=== PATIENT | female | born 1995 | race Caucasian/White ===

== ENCOUNTER 2017-04-22 20:56 | Emergency (ER) | payer BC ==
[2014-04-07 08:46] VITALS: Wt 99.8 kg
[~2017-04-22 20:56] MED LIST: ALBU8.5H12 IH; AMOX500T10 PO; AMPH15TA3 PO; ASPI-692 PO; CETI-260 PO; DIAZ-308 PO; DIVA250T81 PO; FLUV100T21 PO; MULT-1372 PO; QUET100T29 PO; VENL75CA58 PO
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
[2017-04-22 21:45] LABS: PLATELET COUNT, AUTOMATED 339 K/uL (150-450)
[2017-04-23 01:44] VITALS: BP 133/88
== END 2017-04-22 22:50 ==
LOC: ER 21:38
DX: F32.9 Major depressive disorder, single episode, unspecified (principal); R45.851 Suicidal ideations; F12.929 Cannabis use, unspecified with intoxication, unspecified
CPT/HCPCS: 36415; 80305; 80320; 80329; 81001; 81025; 82040; 82247; 82310; 82374; 82435; 82565; 82947; 83735; 84075; 84132; 84155; 84295; 84443; 84450; 84460; 84520; 85025; 99285

== ENCOUNTER 2017-04-22 22:12 | Inpatient (IN) | payer BC ==
[2014-04-07 08:46] VITALS: Ht 162.6 cm; Wt 99.8 kg
[~2017-04-22] VITALS: Ht 162.6 cm; Wt 99.8 kg
[2017-04-22] MEDS ORDERED: MAG HYD/AL HYD/SIMETH 30ML UDC PO PRN (23:00)
[2017-04-22] MEDS: LORazepam 1 MG TAB PO PRN (23:07)
[2017-04-22 23:38] VITALS: BP 131/92
[2017-04-23] MEDS: LORazepam 1 MG TAB PO PRN (00:21)
[2017-04-23] MEDS: ACETAMINOPHEN 325 MG TAB PO PRN (00:22)
[2017-04-23] MEDS: MULTIVITAMINS PO SCH (08:20)
[2017-04-23] MEDS: guaiFENesin/P-EPHED 1 EA TABCR PO SCH ×2 (09:40→21:06)
[2017-04-23] MEDS: METHYLPHENIDATE 18 MG TABER PO SCH (10:45)
[2017-04-23] MEDS: OMEGA-3 500 MG CAP PO SCH (12:52)
[2017-04-23] MEDS: CHOLECALCIFEROL 1000 UNIT TAB PO SCH (12:53)
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
[2017-04-23] MEDS: hydrOXYzine PAMOATE 25 MG CAP PO SCH (21:06)
[2017-04-24 05:56] VITALS: BP 115/60
[2017-04-24] MEDS: MULTIVITAMINS PO SCH (08:03)
[2017-04-24] MEDS: METHYLPHENIDATE 18 MG TABER PO SCH (08:03)
[2017-04-24] MEDS: guaiFENesin/P-EPHED 1 EA TABCR PO SCH ×2 (08:03→20:56)
[2017-04-24] MEDS: CHOLECALCIFEROL 1000 UNIT TAB PO SCH (08:03)
[2017-04-24] MEDS: OMEGA-3 500 MG CAP PO SCH (08:03)
--- NOTE | 2017-04-24 10:50 | BHS Progress Note ---
[facility] - Subjective Progress Notes Subjective Patient continues to improve, will increase Concerta to 36mg today, sleep is intact with low dose hydroxyzine. Mood improving, vague suicidal thoughts last PM. Will continue treatment. Therapy to focus on anxiety today. No other concerns. Suicidal Ideation: Resolving Homicidal Ideation: None [facility] - Objective Physical Exam Vital Signs Vital Signs Date Time Temp Pulse Resp B/P (MAP) Pulse Ox O2 Delivery O2 Flow Rate FiO2 04/24/17 05:56 98.5 90 115/60 (78) 94 Room Air 04/22/17 23:38 16 Hematology Test 04/23/17 00:00 Vitamin D 25-Hydroxy 19 ng/ml (30-100) Free Thyroxine 0.86 ng/dl (0.78-2.19) Chemistry Test 04/23/17 00:00 Vitamin D 25-Hydroxy 19 ng/ml (30-100) Free Thyroxine 0.86 ng/dl (0.78-2.19) Muscle Strength and Tone: WNL Gait and Station: Steady [facility] Medications Reviewed: Side Effects, Benefits of Medication, Risks Allergies Reviewed: Yes Mental Status Exam General Appearance: Casual, Well Groomed, Good Eye Contact, Cooperative, Polite , Good Interaction, No Tearful, No Psychomotor Agitation, No Psychomotor Retardation, No Bizarre Mannerisms, No Tics Speech: Clear, Spontaneous, Normal Rate, Normal Rhythm, Normal Volume, Normal Tone Mood: Dysthmic/Depressed (improving) Affect: Full and Appropriate, Calm, No Withdrawn, No Tearful, No Anxious, No Agitated Thought Process: Organized, Logical, Goal Directed, No Loose Associations, No Flight of Ideas Thought Content: Suicidal Ideation (resolving), No Homicidal Ideation, No Delusions, No Auditory Halllucinations, No Visual Hallucinations, No Thought Broadcasting, No Ideas of Reference, No Obsessions, No Compulsions Sensorium: Clear Cognition: Alert & Oriented-Person, Alert & Oriented-Place, Alert & Oriented- Time, Gnbuz-[id number]-[id number] Memory: Immediate, Recent, Remote Intelligence: Average Insight Judgment: Fair (improving) [facility] Assessment and Plan [id number] Encounter Date: Apr 24, 2017 [id number] Encounter Time: 10:00 [facility] Plan: Necessary Precautions, Individual/Group Therapy, Admin/Titrate Meds, Educate Patient Tobacco Medications: Not Appropriate Condition Multpiple Antipsychotics Used: No Problems: (1) Persistent depressive disorder Status: Chronic (2) Attention deficit disorder (ADD) Status: Chronic (3) Cannabis use disorder, severe, in controlled environment Status: Chronic Condition 1. continue treatment 2. increase Concerta to 36mg daily Problem Qualifiers (1) Attention deficit disorder (ADD): Attention deficit-hyperactivity disorder type: combined inattentive-hyperactive LUIS FUNES MD Apr 24, 2017 10:50
[2017-04-24] MEDS ORDERED: METHYLPHENIDATE 18 MG TABER PO ONE (11:00)
[2017-04-24] MEDS: hydrOXYzine PAMOATE 25 MG CAP PO SCH (20:56)
[2017-04-25 06:17] VITALS: BP 111/60
[2017-04-25] MEDS: MULTIVITAMINS PO SCH (08:33)
[2017-04-25] MEDS: OMEGA-3 500 MG CAP PO SCH (08:33)
[2017-04-25] MEDS: CHOLECALCIFEROL 1000 UNIT TAB PO SCH (08:34)
[2017-04-25] MEDS: guaiFENesin/P-EPHED 1 EA TABCR PO SCH ×2 (08:35→21:32)
[2017-04-25] MEDS: METHYLPHENIDATE 18 MG TABER PO SCH (08:35)
--- NOTE | 2017-04-25 09:44 | BHS Progress Note ---
[facility] - Subjective Progress Notes Subjective Patient continues to improve, and reports doing well today, suicidal thoughts continue to resolve, sleep and appetite good, mood improving. Patient reports increased concentration while doing her college studies on the unit. Patient's mother is arriving in [place] today, and will likely plan for discharge tomorrow into the care of her Mother tomorrow. No other concerns. Will continue same medications for now. Suicidal Ideation: None Homicidal Ideation: None [facility] - Objective Physical Exam Vital Signs Vital Signs Date Time Temp Pulse Resp B/P (MAP) Pulse Ox O2 Delivery O2 Flow Rate FiO2 04/25/17 06:17 98.8 52 15 111/60 (77) 95 Room Air Hematology Test 04/23/17 00:00 Vitamin D 25-Hydroxy 19 ng/ml (30-100) Free Thyroxine 0.86 ng/dl (0.78-2.19) Free Triiodothyronine 4.0 pg/mL (2.4-4.2) Chemistry Test 04/23/17 00:00 Vitamin D 25-Hydroxy 19 ng/ml (30-100) Free Thyroxine 0.86 ng/dl (0.78-2.19) Free Triiodothyronine 4.0 pg/mL (2.4-4.2) Muscle Strength and Tone: WNL Gait and Station: Steady [facility] Medications Reviewed: Side Effects, Benefits of Medication, Risks Allergies Reviewed: Yes Mental Status Exam General Appearance: Casual, Well Groomed, Good Eye Contact, Cooperative, Polite , Good Interaction, No Unkept, No Tearful, No Psychomotor Agitation, No Psychomotor Retardation, No Bizarre Mannerisms, No Tics Speech: Clear, Spontaneous, Normal Rate, Normal Rhythm, Normal Volume, Normal Tone Mood: Dysthmic/Depressed (improving) Affect: Full and Appropriate, Calm, No Withdrawn, No Tearful, No Anxious, No Agitated Thought Process: Organized, Logical, Goal Directed, No Loose Associations, No Flight of Ideas Thought Content: Suicidal Ideation (resolving), No Homicidal Ideation, No Delusions, No Auditory Halllucinations, No Visual Hallucinations, No Thought Broadcasting, No Ideas of Reference, No Obsessions, No Compulsions Sensorium: Clear Cognition: Alert & Oriented-Person, Alert & Oriented-Place, Alert & Oriented- Time, Kcepz-[id number]-[id number] Memory: Immediate, Recent, Remote Intelligence: Average Insight Judgment: Fair (improving) [facility] Assessment and Plan [id number] Encounter Date: Apr 25, 2017 Ifgb-he-Hove Encounter Time: 09:30 [facility] Plan: Necessary Precautions, Individual/Group Therapy, Admin/Titrate Meds, Educate Patient Tobacco Medications: Not Appropriate Condition Multpiple Antipsychotics Used: No Problems: (1) Persistent depressive disorder Status: Chronic Assessment & Plan: appears to be complicated by multiple identifiable social stressors. (2) Attention deficit disorder (ADD) Status: Chronic (3) Cannabis use disorder, severe, in controlled environment Status: Chronic Condition 1. continue treatment. 2. plan for discharge tomorrow. Problem Qualifiers (1) Attention deficit disorder (ADD): Attention deficit-hyperactivity disorder type: combined inattentive-hyperactive LUIS FUNES MD Apr 25, 2017 09:44
[2017-04-25] MEDS: ACETAMINOPHEN 325 MG TAB PO PRN (10:10)
[2017-04-25] MEDS: hydrOXYzine PAMOATE 25 MG CAP PO SCH (21:32)
[2017-04-26] MEDS: MULTIVITAMINS PO SCH (08:24)
[2017-04-26] MEDS: guaiFENesin/P-EPHED 1 EA TABCR PO SCH (08:24)
[2017-04-26] MEDS: OMEGA-3 500 MG CAP PO SCH (08:24)
[2017-04-26] MEDS: METHYLPHENIDATE 18 MG TABER PO SCH (08:24)
[2017-04-26] MEDS: CHOLECALCIFEROL 1000 UNIT TAB PO SCH (08:24)
[2017-04-26] MEDS ORDERED: OMEG-23 PO (10:39)
[2017-04-26] MEDS ORDERED: METH18ERPT PO (10:39)
[2017-04-26] MEDS ORDERED: GUAI-652 PO (10:41)
[2017-04-26] MEDS ORDERED: MULT-1379 PO (10:42)
[2017-04-26] MEDS ORDERED: CHOL10005 PO (10:42)
[2017-04-26] MEDS ORDERED: HYDR50CA47 PO (10:42)
[2017-04-26] MEDS ORDERED: ACET-1966 PO (10:43)
--- NOTE | 2017-04-26 21:09 | DISCHARGE SUMMARY ---
FINAL DIAGNOSES 1. Persisting depressive disorder. 2. Attention deficit disorder. 3. Mixed adjustment disorder with depressed mood. 4. Rule out generalized anxiety disorder. 5. Cannabis use disorder, moderate in nature. 6. Supportive relationship with mother. This patient was seen on the morning of April 26, 2017, at approximately 1030 hours. 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 Please see H and P for full details. The patient contacted the Emergency Room and came to the Emergency Room voluntarily after experiencing increasing depressive symptoms. Overall, it sounds like the patient had done relatively well in the absence of medications which have been used in the past to varying degrees of success, including mood stabilizers and antidepressants, as well as ADD meds. The patient then experienced a knee injury in January 2017. The patient reports this started a cascade of depressive events. The patient is able to identify multiple social stressors. Again, please see H and P for full details. The patient was started on Concerta for treatment of low concentration and fatigue as well as potential brief antidepressive effects in this patient who historically does not desire to stay on medications skilled nursing and also historically has done well in the absence of medications for quite some time. The patient also was given much education surrounding the use of cannabis and emotional dysregulation, and the patient agreed to stop. The patient continued to improve and was discharged to home. PHYSICAL EXAMINATION Please see emergency room note. Notable for: GENERAL: A 22-year-old female, no acute medical distress, interacting well in the Emergency Room, depressed appearing at times. VITAL SIGNS: Temperature 99.0, pulse 87, respiratory rate 16, blood pressure 113/95, pulse oximetry 95% on room air at time of admission. At time of discharge from [facility], temperature 98.8, pulse 52, respiratory rate 15, blood pressure 111/60, pulse oximetry 95 on room air. LABORATORY DATA Vitamin D 25-hydroxy found to be low at 19. Free T4 was 0.86 and low normal range. Free T3 was 4.0, in normal range. At time of admission, CBC notable for RBCs and a hemoglobin elevated slightly at 5.58 and 16.2 respectively. CMP unremarkable. Urinalysis did show trace leukocyte esterase. The patient was asymptomatic. She did have squamous epithelial cells. screen was negative. Toxicology screen was positive for cannabinoids, negative for any other substances of abuse, and an undetectable serum alcohol level. MENTAL STATUS EXAMINATION AT TIME OF DISCHARGE GENERAL APPEARANCE, BEHAVIOR, AND ATTITUDE: This is a very polite, cooperative , pleasant, 22-year-old female interacting well with this provider, treatment team staff, and her mother present, who [place]. The patient is not tearful, making good eye contact. No psychomotor agitation or retardation. SPEECH: Within normal limits. Regular rate, rhythm, volume, and tone. MOOD: Described as improved and good. AFFECT: Full and mood congruent. THOUGHT PROCESSES: Logical, goal directed. No loose associations or flight of ideas. THOUGHT CONTENT: Free of auditory or visual hallucinations, ideas of reference , thought broadcasting, delusions, obsessions, or compulsions. The patient is adamantly denying suicidal or homicidal ideation. SENSORIUM: Clear. COGNITION: Alert and oriented to person, place, time, and situation. MEMORY: Immediate, recent, and remote estimated intact. INTELLIGENCE: Average to above based on interview and previous knowledge of this patient. INSIGHT AND JUDGMENT: Considered grossly intact in the absence of substance use and appropriate for ongoing outpatient management. RESULTS OF TESTING IMAGING: None. LABORATORY DATA: See above. CONSULTATIONS None. TREATMENT The patient received medications and participated in individual and group therapy. HOSPITAL COURSE The patient took a very active role in her treatment, and the patient agreed to a trial of Concerta. This was increased during her stay to 36 mg q.a.m. total dose. The patient continued to do well. The patient met with her mother. She agreed to continue outpatient care at this time and stop all cannabis use. The patient's symptoms are in remission. The patient was discharged to home. CONDITION OF PATIENT ON DISCHARGE Stable, considered minimal risk to herself or others and appropriate for outpatient care. DISPOSITION The patient discharged to the care of her mother. She would follow up with outpatient medication and therapy management and stop cannabis. She was given the crisis line should symptoms return. DISCHARGE MEDICATIONS 1. The patient would remain on hydroxyzine 25 to 50 mg p.o. q.6 hours for anxiety or insomnia. 2. The patient would remain on vitamin D3, 2000 International Units daily. 3. Multivitamin with minerals daily. 4. Fish oil 1000 mg daily. 5. Concerta 36 mg total dose p.o. q.a.m. 6. The patient could take Mucinex as needed over the counter as well. Risks, benefits, and alternatives of above discharge plan were discussed. Informed consent was given to proceed with above discharge plan by this competent patient and the patient's mother present at time of discharge. SAM
== END 2017-04-26 11:10 | disposition home or self-care (01) | DRG 881 ==
LOC: BHS 22:12
PROVIDERS: ADMIT Psychiatry & Neurology Psychiatry; ATTEND Psychiatry & Neurology Psychiatry
DX: F34.1 Dysthymic disorder (principal); R45.851 Suicidal ideations; F90.2 Attention-deficit hyperactivity disorder, combined type; F43.21 Adjustment disorder with depressed mood; F41.1 Generalized anxiety disorder; F12.10 Cannabis abuse, uncomplicated; G47.00 Insomnia, unspecified; J45.990 Exercise induced bronchospasm; Z62.811 Personal history of psychological abuse in childhood; Z81.1 Family history of alcohol abuse and dependence; Z81.8 Family history of other mental and behavioral disorders; Z88.2 Allergy status to sulfonamides; Z91.5 Personal history of self-harm; Z73.3 Stress, not elsewhere classified
CPT/HCPCS: 82306; 84439; 84481; 90853; A9270; Q0177

== ENCOUNTER → 2017-12-27 | Outpatient (CLI) | payer BC ==
[2014-04-07 08:46] VITALS: BMI 30.1
[~2017-12-27] MED LIST changes: +ACET-1966 PO; +CHOL10005 PO; +GUAI-652 PO; +HYDR50CA47 PO; +METH18ERPT PO; +MULT-1379 PO; +OMEG-23 PO
--- NOTE | 2017-12-27 13:16 | RADIOLOGY IMAGING REPORT ---
FACILITY: PATIENT NAME: Kriss Jones : 1995 MR: [id number] V: [id number] EXAM DATE: ORDERING PHYSICIAN: BRITANY RIVERA TECHNOLOGIST: Location: [facility] Patient: Kriss Jones : 1995 Visit/Account:[id number] Date of Sevice: 12/27/2017 EXAMINATION: CT of the Paranasal Sinuses HISTORY: Sinusitis. History of septoplasty. TECHNIQUE: Contiguous axial images were obtained through the paranasal sinuses without intravenous c ontrast administration. Coronal and sagittal reformatted images were obtained from the axial source d dany. One of the following dose optimization techniques was utilized in the performance of this exam: Autom ated exposure control; adjustment of the mA and/or kV according to the patient's size; or use of an i terative reconstruction technique. Specific details can be referenced in the facility's radiology C T exam operational policy. COMPARISON: None available. FINDINGS: Maxillary sinuses: Medial maxillary antrostomy on the left. Small cyst or polyp along the posterior floor of the left maxillary sinus. Maxillary sinuses are otherwise clear. Frontal sinuses: Completely opacified left frontal sinus. Ethmoid air cells: Partial left ethmoidectomy. Partially opacified anterior ethmoid air cells. The right ethmoid air cells are clear Sphenoid sinuses: Negative. Ostiomeatal units: Patent. Nasal septum / nasal cavity: Leftward nasal septal deviation. Orbits: Negative. Visualized intracranial contents/soft tissues: Negative. TMJs: Negative. IMPRESSION: 1. Postop left medial maxillary antrostomy and partial ethmoidectomy. The left frontal sinus is com pletely opacified and the left anterior ethmoid air cells are partially opacified. 2. Small cyst or polyp in left maxillary sinus. 3. Leftward nasal septal deviation. Report Dictated By: Mitchell Goodman MD at 12/27/2017 1:08 PM Report E-Signed By: Mitchell Goodman MD at 12/27/2017 1:13 PM WSN:[id number]
== END ==
LOC: CT 01:05
PROVIDERS: ATTEND Otolaryngology
DX: J34.2 Deviated nasal septum (principal); J32.1 Chronic frontal sinusitis; J01.21 Acute recurrent ethmoidal sinusitis; J34.1 Cyst and mucocele of nose and nasal sinus
CPT/HCPCS: 70486